=== PATIENT | male | born 1990 | race African-American/Black ===

== ENCOUNTER 2018-06-22 18:56 | Emergency (ER) | payer OTHER ==
[2018-06-22 19:04] VITALS: BP 134/75; PULSE 75; TEMP 98.1; BMI 21.7
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
[2018-06-22 20:10] LABS: URINE APPEARANCE CLEAR; URINE BILIRUBIN NEGATIVE (<2.0 mg/dL); URINE COLOR YELLOW; URINE GLUCOSE (UA) NEGATIVE (NEGATIVE); URINE KETONE NEGATIVE (NEGATIVE); URINE LEUK ESTERASE NEGATIVE (NEGATIVE); URINE NITRITE NEGATIVE (NEGATIVE); URINE PROTEIN NEGATIVE (NEGATIVE); URINE UROBILINOGEN NEGATIVE mg/dL (0.2-1.0)
== END 2018-06-22 21:05 | disposition home or self-care (01) ==
LOC: JER 18:56
DX: S93.402A Sprain of unspecified ligament of left ankle, initial encounter (principal); V86.06XA Driver of dirt bike or motor/cross bike injured in traffic accident, initial encounter; Y92.414 Local residential or business street as the place of occurrence of the external cause; Y93.89 Activity, other specified; Y99.8 Other external cause status
CPT/HCPCS: 73610-TC-LT-FY; 73630-TC-LT; 81003; 99282-25

== ENCOUNTER 2019-01-18 12:37 | Emergency (ER) | payer SELFPAY ==
[2019-01-18 12:46] VITALS: BP 135/80; PULSE 99; TEMP 97.5; BMI 21.7
--- NOTE | 2019-01-18 12:46 | PDOC ---
Rapid Medical Evaluation Chief Complaint: Bite Time Seen by Provider: 01/18/19 12:44 Medical Evaluation: Allergies Allergy/AdvReac Type Severity Reaction Status Date / Time shellfish derived Allergy Verified 01/18/19 12:42 01/18/19 12:44 I have performed a brief in-person evaluation of this patient. 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 Discharge Disposition - Diagnosis Dog bite - Referrals - Patient Instructions - Post Discharge Activity
--- NOTE | 2019-01-18 13:15 | PDOC ---
History of Present Illness - General Chief Complaint: Bite Stated Complaint: ATTACK BY DOG Time Seen by Provider: 01/18/19 12:44 History Source: Patient Exam Limitations: No Limitations - History of Present Illness Initial Comments: 01/18/19 13:12 Dates was in the park today when multiple dogs were being walked without lesions , and one dog, medium sized attacked and bit him in multiple places. Patient reports bite wound to right calf, left calf and left knee. Dogs are words of a daycare program, owners are known, and vaccination records will be obtained Occurred: reports: just prior to arrival Severity: reports: mild, moderate Pain Location: reports: lower extremity (right an dleft calf) Modifying Factors: improves with: None Past History - Travel Traveled outside of the country in the last 30 days: No Close contact w/someone who was outside of country & ill: No - Past Medical History Allergies/Adverse Reactions: Allergies Allergy/AdvReac Type Severity Reaction Status Date / Time shellfish derived Allergy Verified 01/18/19 12:42 Home Medications: Ambulatory Orders Amoxicillin/Potassium Clav [Augmentin 875-125 Tablet] 1 each PO BID #14 tablet 01/18/19 COPD: No - Immunization History Immunization Up to Date: Yes - Suicide/Smoking/Psychosocial Hx Smoking History: Never smoked Have you smoked in the past 12 months: No Hx Alcohol Use: No Drug/Substance Use Hx: No Review of Systems - Review of Systems Able to Perform ROS?: Yes Is the patient limited Croatian proficient: Yes Constitutional: Yes: Symptoms Reported, See HPI, Malaise. No: Fever HEENTM: Yes: See HPI. No: Symptoms Reported Respiratory: Yes: See HPI, Cough. No: Symptoms reported Musculoskeletal: Yes: Symptoms Reported, See HPI, Muscle Pain Integumentary: Yes: Symptoms Reported, See HPI, Bruising, Other Neurological: Yes: Symptoms reported All Other Systems: Reviewed and Negative *Physical Exam - Vital Signs Last Vital Signs Temp Pulse Resp BP Pulse Ox 97.5 F L 99 H 16 135/80 97 01/18/19 12:42 01/18/19 12:42 01/18/19 12:42 01/18/19 12:42 01/18/19 12:42 - Physical Exam General Appearance: Yes: Nourished, Appropriately Dressed, Mild Distress HEENT: positive: JUAN, Normal ENT Inspection, Normal Voice, TMs Normal, Pharynx Normal Neck: positive: Supple. negative: Tender Respiratory/Chest: positive: Lungs Clear, Normal Breath Sounds Gastrointestinal/Abdominal: positive: Soft Extremity: positive: Normal Capillary Refill, Normal Range of Motion Integumentary: positive: Normal Color, Warm, Pale, Bruising (2 deep puncture wounds to right midpoint, has full flexion and extension to foot, neurovascular intact. ), Other (left leg with some bruising puncture wounds but some soft tissue swelling. Inferior to that site has a superficial abrasion/rate foundation assistant with a dog bite) Neurologic: positive: diabetes specialist II-XII NML intact, Fully Oriented, Alert, Normal Mood/ Affect, Normal Response, Motor Strength 5/5 Progress Note - Progress Note Progress Note: Domesticated dog bite to left and right calves, forward air controller/air officer of dogs available and dogs able to be quarantined. Rabies is not indicated at this time. Wounds were cleaned and dressed with bacitracin ointment. Patient will be started on Augmentin and given first dose here. *DC/Admit/Observation/Transfer Diagnosis at time of Disposition: Dog bite Qualifiers: Encounter type: initial encounter Qualified Code(s): W54.0XXA - Bitten by dog, initial encounter - Discharge Dispostion Disposition: HOME Condition at time of disposition: Stable Decision to Admit order: No - Referrals - Patient Instructions Printed Discharge Instructions: How to Care for a Domestic Animal Bite Additional Instructions: Rest, keep area elevated. Avoid strenuous activity or exercise until wound is healed Use hot soaks to area to bring more blood to the surface and encourage drainage May change dressings as needed to keep clean - Allow water from shower to wash area thoroughly for 2-3 minutes, and pat dry upon exit of shower and replace dressing. Change his dressing daily until the wound is completely healed. May use Tylenol or Motrin for mild pain relief Continue all medications as prescribed Followup with private physician in 2-3 days for wound check Return to emergency Department for worsening swelling, pain, redness, fevers as needed - Post Discharge Activity Forms/Work/School Notes: Back to Work
[2019-01-18] MEDS ORDERED: AMOX TR/POT CLAV 875MG/125MG TABLETS (FP) PO ONE (13:20)
[2019-01-18] MEDS ORDERED: AMOX TR/POT CLAV 875MG/125MG TABLETS (FP) ONE (13:25)
== END 2019-01-18 13:31 | disposition home or self-care (01) ==
LOC: JERFT 12:37
DX: S81.851A Open bite, right lower leg, initial encounter (principal); W54.0XXA Bitten by dog, initial encounter; Y93.89 Activity, other specified; Y92.89 Other specified places as the place of occurrence of the external cause
CPT/HCPCS: 99281-25